=== PATIENT | male | born 1955 | race Caucasian/White ===

== ENCOUNTER 2016-11-24 14:05 | Outpatient (CLI) | payer BC ==
[2015-09-19 04:28] VITALS: BP 146/102
--- NOTE | 2016-11-24 15:34 | Diagnostic Imaging Report ---
LANDY WINSTON [facility] [id number] [facility].[address] [address] Report Submission Date: Nov 24, 2016 3:12:42 PM CDT Patient Study Name: KATHY ALEXANDER Date: Nov 24, 2016 2:06:42 PM CDT Modality Type: CR Gender: M Description: CHEST : 53 Institution: [facility] Physician: LANDY WINSTON Examination: PA and lateral chest. History: Evaluate lung snow. Comparison exam: None provided Findings: PA lateral chest demonstrate a normal cardiac and mediastinal silhouette. No focal infiltrate. No effusion. No blunting of the costophrenic margins. Osseous structures are appropriate for age. Impression: No acute pulmonary process. Electronically signed on Nov 24, 2016 3:12:42 PM CDT by: Len TORRES
== END 2016-11-24 14:10 ==
LOC: RAD 14:05
PROVIDERS: ATTEND Family Medicine
DX: R05 Cough (principal)
CPT/HCPCS: 71020

== ENCOUNTER 2017-04-13 19:35 | Emergency (ER) | payer BC ==
[2017-04-13] MEDS ORDERED: TETRACAINE HCL/PF 5% OPTH SOL OP ONE (19:48)
[2017-04-13] MEDS ORDERED: OPTH IRRIGATION SOLUTION 120 ML BTL OP ONE (19:48)
[2017-04-13] MEDS ORDERED: GENTAMICIN SULFATE 0.3% TUBE OP ONE (19:57)
--- NOTE | 2017-04-13 20:00 | ED Physician Documentation ---
Eye Problem - HISTORIAN Historian: patient - HPI Chief Complaint: Eye Problems Onset: hours Associated symptoms: pain, itching, foreign body Location: right eye Severity: moderate Apparent Injury: no Further Comments: yes (61 year old male patient presents with complaints of foreign body to right eye. Patient says he was cleaning and thinks he got sand in his eye. reports patient frequently rubbing eye.) - ROS CONST: no problems MS/SKIN/LYMPH: denies: weakness CVS/RESP: none EYES/ENT: none GI/: denies: nausea, vomiting NEURO: denies: headache - PAST HX Past History: hypertension Allergies/Adverse Reactions: Allergies Allergy/AdvReac Type Severity Reaction Status Date / Time bee venom (honey bee) Allergy Severe Anaphylaxis Verified 04/13/17 19:56 Home Medications: Ambulatory Orders Medication Instructions Recorded Atenolol [Tenormin] 50 mg PO DAILY 09/19/15 Hydrochlorothiazide [Hydrodiuril] 50 mg PO DAILY 09/19/15 - SOCIAL HX Smoking History: non-smoker - FAMILY HX Family History: none - VITAL SIGNS Vital Signs: Vital Signs Temp Pulse Resp BP Pulse Ox 146/102 09/19/15 04:25 - REVIEWED ASSESSMENTS Nursing Assessment Reviewed: Yes Vitals Reviewed: Yes ED Results Lab/Radiology - Orders Orders: ED Orders Category Date Time Status Gentamicin Sulfate [Gentak] Med 04/13/17 19:57 Once 1 gm OP NOW ONE Opth Irrigation Solution [Eye Wash Solution] Med 04/13/17 19:48 Once 120 ml OP NOW ONE Tetracaine HCl/Pf [Pontocaine 5% Opth] Med 04/13/17 19:48 Once 2 drop OP NOW ONE Eye Problem Physical Exam - Physical Exam General Appearance: mild distress Visual Acuity: see nursing assessment Eyelids: nml inspection Conjunctiva and Sclera: injected (R) Corneas: fluorescein dye uptake (R) (at 6-7 o'clock position) EOM: intact Pupils: equal Skin: nml color, warm, skin intact CVS: reg rate & rhythm Neuro/Psych: oriented x3, neuro intact, mood/affect nml, CN's nml as tested Discharge Clincal Impression: Corneal abrasion Qualifiers: Encounter type: initial encounter Laterality: right Qualified Code(s): S05.01XA - Injury of conjunctiva and corneal abrasion without foreign body, right eye, initial encounter Referrals: Tracy Stallworth MD [Primary Care Provider] - 2 Days Additional Instructions: Rest Do not rub or touch eye, use eye patch if needed to prevent rubbing. Follow up with eye doctor for re-evaluation tomorrow. Gentak ointment to right eye every 8 hours. Tylenol or ibuprofen as needed for pain. Condition: Stable Disposition: 01 HOME, SELF-CARE Decision to Admit: NO Decision Time: 19:59
[2017-04-13 20:18] VITALS: BP 142/81
== END 2017-04-13 20:10 | disposition home or self-care (01) ==
LOC: ED 19:35
DX: S05.01XA Injury of conjunctiva and corneal abrasion without foreign body, right eye, initial encounter (principal); X58.XXXA Exposure to other specified factors, initial encounter; Y93.9 Activity, unspecified; Y99.9 Unspecified external cause status
CPT/HCPCS: 99283